=== PATIENT | female | born 1975 | race Caucasian/White ===

== ENCOUNTER → 2017-01-20 | Outpatient (CLI) | payer BC | LOC: MW.LAB 11:48 | PROVIDERS: ATTEND Internal Medicine Endocrinology, Diabetes & Metabolism | DX: D35.2 Benign neoplasm of pituitary gland (principal) | CPT/HCPCS: 36415; 84146; 84439; 84443 ==

== ENCOUNTER → 2017-01-31 | Outpatient (CLI) | payer BC ==
[~2017-01-31] MED LIST: Gadobutrol 7.5 mMOL/7.5 ML SDV IVPUSH STA
--- NOTE | 2017-02-01 09:07 | MR ---
EXAMINATION: MRI of the brain with and without contrast HISTORY: Pituitary gland neoplasm COMPARISON: 10/01/2015 TECHNIQUE: Multiplanar and multisequence images obtained through the brain before and following the administration of 7.5 mL of Gadavist. A pituitary protocol was used. FINDINGS: There is no generalized atrophy. No mass, mass effect, or midline shift. The extra-axial s paces appear normal. The cerebellar pontine angles are normal. There is no abnormal diffusion restri ction to suggest an infarct. The ventricles and sulci are symmetric. Orbits and globes appear normal . The paranasal sinuses and mastoid air cells are clear. The craniocervical junction is unremarkable . The pituitary gland overall is not enlarged. There is possibly a tiny 4 mm hypoenhancing focus wit hin the inferior aspect of the mid pituitary gland. This is extremely subtle and relative to the pre vious MRIs unchanged. The infundibulum is midline. The optic nerves and chiasm appear normal. The ca lvarial signal appears normal. IMPRESSION: 1. Subtle oval 4 mm hypoenhancing component along the midline inferior aspect of the pituitary gland which could represent a subtle microadenoma however this is not well characterized. Otherwise the p ituitary gland is not enlarged and appears normal.
== END ==
LOC: MW.MRI 13:35
PROVIDERS: ATTEND Internal Medicine Endocrinology, Diabetes & Metabolism
DX: D35.2 Benign neoplasm of pituitary gland (principal)
CPT/HCPCS: 36415; 70553; 84703; A9585